=== PATIENT | male | born 1955 | race Caucasian/White ===

== ENCOUNTER 2023-04-16 11:46 | Emergency (ER) | payer MEDICARE, OTHER, SELFPAY ==
[2023-04-16] VITALS (12 sets, daily range): BP systolic 137–182; BP diastolic 68–106; BMI 25.4
[2023-04-16 12:06] LABS: % Basophils 0.4 % (0-2); % Eosinophils 0.2 % (0-6); % Immature Granulocytes 0.5 % (0-0.5); % Monocytes 9.4 % (1.7-9.3); % Neutrophils 68.5 % (42.2-75.2); Absolute Lymphocytes 1.8 10^3/uL (1.2-3.4); Absolute Monocytes 0.8 10^3/uL (0.1-0.6); Absolute Neutrophils 5.7 10^3/uL (1.4-6.5); Hematocrit 44.1 % (39.0-52.0); Hemoglobin 15.2 g/dL (13.0-18.0); Mean Corp Hgb Conc. 34.5 g/dL (33.0-37.0); Mean Corpuscular Hgb 28.5 pg (27.0-31.0); Mean Corpuscular Volume 82.7 fL (80.0-94.0); Mean Platelet Volume 9.3 fL (7.4-10.4); Nucleated Red Blood Cells % 0 % (-); Platelet Count 259 10^3/uL (130-400); Red Blood Cell Count 5.33 10^6/uL (4.70-6.10); Red Cell Dist. Width 12.3 % (11.5-14.5); White Blood Cell Count 8.4 10^3/uL (4.8-10.8)
[2023-04-16 12:28] LABS: ALT (SGPT) 25 U/L (0-50); AST (SGOT) 34 U/L (17-59); Albumin 4.6 g/dl (3.5-5.0); Alkaline Phosphatase 81 U/L (38-126); Blood Urea Nitrogen 15 mg/dl (9-20); Calcium 9.7 mg/dl (8.4-10.2); Carbon Dioxide 27 mmol/L (22-30); Chloride 103 mmol/L (98-107); Glucose 117 mg/dl (70-99); Potassium 4.2 mmol/L (3.5-5.1); Sodium 137 mmol/L (135-145); Total Bilirubin 0.6 mg/dl (0.2-1.3); Total Protein 7.6 g/dl (6.3-8.2); eGFR > 60.00
--- NOTE | 2023-04-16 12:58 | ED.GENMED ---
History of Present Illness
General
Chief Complaint: Blood Pressure Problem
Source: patient and spouse
Exam Limitations: none
Time Seen by Provider: 04/16/23 12:58
Travel History
Have you had any contact with someone who has COVID-19?: No
Do you have any symptoms of coronavirus? Fever > 100 degrees, chills, cough, shortness of breath, sore throat, loss of taste or smell, muscle aches, or headache?: No
History of Present Illness
History of Present Illness:
67-year-old male has not felt well for the last 2 to 3 days. Vague in nature. thought his face was flushed 2 days ago. Blood pressures have been elevated in the 190s over 90s range. Admits to blood pressures have gone up as he rechecks them
frequently. No chest pain shortness of breath. Slight foggy feeling in his head. Although no headache. No other neurologic symptoms. Denies fever abdominal pain urinary symptoms.
Past History
Past History
ED Past Medical History: Hypercholesterolemia and Other (History of previous episodes involving bloating in the abdomen and palpitations.)
ED Past Surgical History: None
Social History
Tobacco: Non-smoker
Alcohol: Occasional
Drug: None
Personal:
Living: with family
Employment: Employed
Family History
Family History: Early CAD
Review of Systems
Review of Systems
All Other Systems: Not applicable
Constitutional: Reports chills; Denies fever
Respiratory: Reports no symptoms
Cardiac: Reports no symptoms
ABD/GI: Reports no symptoms
Phy Exam
Physical Exam
Physical Exam:
GENERAL: Alert and oriented in no apparent distress
EYE: Orbits normal.
NECK: Supple, no carotid bruit
ENT: Pharynx without erythema
CARDIAC: Regular rate and rhythm without any obvious murmurs.. Blood pressure in each arm in the 170/90 range.
LUNGS: Clear breath sounds,normal
ABDOMEN: Soft, without focal tenderness or distention
NEUROLOGICAL: Alert and oriented , grossly non-focal
SKIN: Warm and dry, no rash or lesion, no discoloration, skin intact.
MUSCULOSKELETAL: No edema,no deformity.Good color
PSYCH: Normal and appropriate interaction.
Course
Orders/Labs/Results
Orders:
Orders
04/16/23 11:54
Electrocardiogram (*1) Urgent
Reason for Study: Hypertension, Benign
CT Head W/o Iv Contrast Urgent
Comment:
Reason For Exam: high bld pressure since sunday with mild CHIRINOS
EKG- Treatment ONCE
04/16/23 11:58
Complete Blood Count/With Diff Urgent
Comprehensive Metabolic Panel Urgent
TSH Reflex To Free T4 Urgent
Comment: ADD ON
04/16/23 13:18
Add On- LAB Urgent
Tests Added?: tsh rteflex t4
04/16/23 14:57
COVID-19 Antigen Urgent
Source: Nasal Swab
Urinalysis Reflex To Culture Urgent
Date Specimen was Collected: 04/16/23
Time Specimen was Collected: 14:55
Urine Microscopic Reflex Cult Urgent
Influenza A+B Rapid Molecular Urgent
SHAYY Source: Nasal Swab
Specimen Description:
04/16/23 14:58
Electrocardiogram (*1) Stat
Reason for Study: Other
Other Reason for Exam: chest pain
EKG- Treatment ONCE
04/16/23 15:03
Troponin I Urgent
04/16/23 17:07
Amlodipine [Norvasc] 2.5 mg PO NOW STA
Abnormal Lab Results
04/16/23 04/16/23
11:58 14:57
Absolute Monos (auto) 0.8 H 10^3/uL
(0.1-0.6)
Monocytes % 9.4 H %
(1.7-9.3)
Glucose 117 H mg/dl
(70-99)
Urine Ketones 2+ A
(Negative)
Ur Occult Blood Reflex Trace A
(Negative)
04/16/23 11:58
04/16/23 11:58
Vital Signs
Initial and Last Documented VS:
Initial Vital Signs
Temp Pulse Resp BP Pulse Ox
98.6 F 87 16 182/106 98
04/16/23 11:50 04/16/23 11:50 04/16/23 11:50 04/16/23 11:50 04/16/23 11:50
Last Documented Vital Signs
Temp Pulse Resp BP Pulse Ox
98.6 F 73 18 137/77 99
04/16/23 11:50 04/16/23 17:15 04/16/23 17:15 04/16/23 17:00 04/16/23 17:15
*Pulse Oximetry
Patient hypoxic: no
*EKG
Interpreted by ED Provider?: Yes
Interpretation: normal
Comparison EKG: no changes
Heart Rate: 89
Rate: normal
Rhythm: sinus
[place]: normal axis
Interval: normal interval
QRS Pattern: left vent hypertrophy
Ischemia: non-specific ST changes
*Critical Care Note
Total Time (30-74mins, 75-104mins- exclusive of procedures): Not Applicable
Data Reviewed
Review of Other/Old Records Reveals: Labs, Records and Testing
Update Note
Update Note:
Patient has remained medically stable and nontoxic. Blood pressures have been in the 160s over high 70s range. Testing is unremarkable. TSH is pending. I will call the patient if this is positive. Patient is complaining of some muscle twitching
to his anterior thighs bilaterally which has been going on for 2 days and some flushing. Almost has an endocrine sound to it however I cannot find any serious etiology or issues. Patient very nervous about his blood pressure and not unreasonable
to start a very low-dose of amlodipine to follow-up. Patient is more comfortable with this approach.
ED Attending Note
-
Portions of this chart may have been created with voice recognition software.� Occasional wrong word or��sound alike� substitutions may have occurred due to the inherent limitations of voice recognition software.
Discharge Plan
Departure
Patient Disposition: Home (Routine Discharge)
Date of Disposition: 04/16/23
Time of Disposition: 17:08
Patient with high blood pressure during this ER visit?: Yes
Discharge Problem:
Leg tremors
Instructions: BLOOD PRESSURE
Prescriptions:
New
amlodipine 2.5 mg tablet
2.5 mg PO DAILY Qty: 30 0RF
No Action
docosahexaenoic acid-epa 1 CAP capsule
1 cap PO DAILY
red yeast rice 600 MG tablet
600 mg PO BID
magnesium 200 MG tablet
100 mg PO DAILY
lansoprazole 30 MG tablet,disintegrat, delay rel
30 mg PO DAILY Qty: 14 0RF
Referrals:
Hansa Knox MD [Family Provider] - Follow up in 2-3 days
Activity Restrictions/Additional Instructions:
Follow-up closely with your primary physician
Amlodipine as directed
As discussed, return with any issues, including chest pain shortness of breath unusual headaches neurologic symptoms increasing tremors or any other concerning symptoms
Interventions
Interventions:
*Risk Screen - Suicide Last Done: 04/16/23 12:30
*General Assessment Last Done: 04/16/23 12:30
*Neglect/Abuse Screening Last Done: 04/16/23 12:30
ED- Fall Risk Assessment Last Done: 04/16/23 12:30
*ED COVID-19 Vaccine History Last Done: 04/16/23 11:50
*Nursing Disposition Last Done: 04/16/23 18:12
ED- Cardiac Assessment Last Done: 04/16/23 12:30
ED- Neurological Assessment Last Done: 04/16/23 12:30
ED- Pulmonary Assessment Last Done: 04/16/23 12:30
Discharge Date and Time
Discharge Date/Time: 04/16/23 18:12
[2023-04-16 15:19] LABS: Urine Albumin Negative (Neg - Trace); Urine Bilirubin Negative (Negative); Urine Character Clear (Clear); Urine Color Yellow; Urine Glucose Negative (Negative); Urine Ketone 2+ (Negative); Urine Leukocyte Negative (Negative); Urine Nitrite Negative (Negative); Urine Occult Blood Trace (Negative); Urine Urobilinogen Negative (Neg - 1+)
[2023-04-16 15:25] LABS: Urine Red Blood Cell 0-2 /HPF (0-2); Urine Squamous Cell 0-2 /LPF (Few); Urine White Cell None Seen /HPF (0-5)
[2023-04-16 15:33] LABS: COVID-19 Antigen Negative (Negative)
[2023-04-16 15:44] LABS: Troponin I < 0.012 ng/ml
[2023-04-16 16:37] LABS: TSH Reflex To Free T4 3.44 uIU/ml (0.47-4.68)
== END 2023-04-16 18:12 | disposition home or self-care (01) ==
LOC: EMR 11:46
PROVIDERS: Student in an Organized Health Care Education/Training Program; EMERGENCY PHYSICIAN Emergency Medicine; FAMILY PHYSICIAN Family Medicine
DX: R25.1 Tremor, unspecified (principal); I10 Essential (primary) hypertension; Z11.52 Encounter for screening for COVID-19
CPT/HCPCS: 99285; 70450; 80053; 81003; 81015; 84443; 84484; 85025; 87502; 87811; 93005

== ENCOUNTER → 2023-05-09 18:10 | Outpatient (REF) | payer MEDICARE, OTHER, SELFPAY | LOC: RCS 18:10 | PROVIDERS: ATTENDING PHYSICIAN Internal Medicine Interventional Cardiology; FAMILY PHYSICIAN Family Medicine | DX: I10 Essential (primary) hypertension (principal); R00.2 Palpitations | CPT/HCPCS: 93306 ==